=== PATIENT | male | born 1970 | race Two or more races ===

== ENCOUNTER → 2017-12-26 | Outpatient (CLI) | END | disposition home or self-care (01) ==

== ENCOUNTER → 2018-02-07 | Outpatient (CLI) | END | disposition home or self-care (01) ==

== ENCOUNTER 2018-06-29 11:35 | Day surgery (SDC) | payer OTHER ==
[2018-06-29] VITALS (9 sets, daily range): BP systolic 111–144; BP diastolic 59–82; PULSE 76–98; RESP 14–24; Ht 162.6 cm; Wt 65.9 kg
[~2018-06-29] VITALS: Ht 162.6 cm; Wt 65.9 kg
[2018-06-29] MEDS ORDERED: TRAM50TA PO (12:06)
[2018-06-29] MEDS ORDERED: MELO15TA30 PO (12:07)
--- NOTE | 2018-06-29 12:56 | PREAC ---
Date/Time of Note Date/Time of Note DATE: 06/29/18 TIME: 12:54 Anesthesia Eval and Record Evaluation Time Pre-Procedure Interview DATE: 06/29/18 TIME: 12:54 Age 47 Sex male NPO: 8 hrs Preoperative diagnosis RIGHT KNEE ACL TEAR Planned procedure RIGHT KNEE ARTHROSCOPY, ACL RECONSTRUCTION Past Medical History Past Medical History: None Surgery & Anesthesia Issues No known issue Meds Anticoagulation: No Beta Марина within 24 hr: No Reason Beta Марина not given: Pt. not on B-Марина Reported Medications Meloxicam* (Mobic*) 15 Mg Tablet, 15 MG PO DAILY, #30 TAB 06/29/18 Tramadol Hcl* (Ultram*) 50 Mg Tablet, 50 MG PO Q6H PRN for PAIN, TAB 06/29/18 Meds reviewed: Yes Allergies Coded Allergies: No Known Allergy (Unverified , 06/29/18) Allergies Reviewed: Yes Labs/Studies Labs Reviewed: Reviewed by anesthesiologist test: N/A Studies: ECG (NL), CXR (NAPD) Pre-procedure Exam Last vitals Vital Signs Date Temp Pulse Resp B/P (MAP) Pulse Ox O2 O2 Flow FiO2 Time Delivery Rate 06/29/18 97.0 76 18 111/62 99 Room Air 11:49 (78) Airway: Adequate mouth opening, Adequate thyromental dist Mallampati: Mallampati II Teeth: Normal Lung: Normal Heart: Normal ASA Physical Status ASA physical status: 1 Emergency: None Planned Anesthetic General/MAC: ETT Nerve block: Femoral (right) Planned Pain Management Single shot nerve block, Parenteral pain med Pre-operative Attestations Prior to commencing anesthesia and surgery, the patient was re-evaluated, there was verification of: *The patient's identity *The results of appropriate recent lab work and preoperative vital signs *The above evaluation not changing prior to induction *Anesthetic plan, risk benefits, alternative and complications discussed with patient/family; questions answered; patient/family understands, accepts and wishes to proceed. Bridger Aguila M.D. Jun 29, 2018 12:56
[2018-06-29] MEDS ORDERED: PROPOFOL 20 ML ONE (13:00)
[2018-06-29] MEDS ORDERED: DIPHENHYDRAMINE 50 MG INJ IV PRN (13:00)
[2018-06-29] MEDS ORDERED: LABETALOL HCL 20MG INJ IV PRN (13:00)
[2018-06-29] MEDS ORDERED: ONDANSETRON 4 MG INJ IV PRN (13:00)
[2018-06-29] MEDS ORDERED: FENTAnyl 50 MCG/ML VIAL IV PRN ×3 (13:00)
[2018-06-29] MEDS ORDERED: CEFAZOLIN 1 GM INJ ONE (13:00)
[2018-06-29] MEDS ORDERED: ROCURONIUM 50 MG INJ ONE (13:00)
[2018-06-29] MEDS ORDERED: GLYCOPYRROLATE 0.4 MG INJ ONE (13:00)
[2018-06-29] MEDS ORDERED: hydrALAzine 20 MG INJ IV PRN (13:00)
[2018-06-29] MEDS ORDERED: ONDANSETRON 4 MG INJ ONE (13:00)
[2018-06-29] MEDS ORDERED: HYDROmorphONE 1 MG/5 ML IV SYRINGE IV PRN ×3 (13:00)
[2018-06-29] MEDS ORDERED: EPHEDrine SULFATE 50 MG/5 ML SYG IV PRN (13:00)
[2018-06-29] MEDS ORDERED: MIDAZOLAM 1 MG/ML 2 ML INJ ONE (13:00)
[2018-06-29] MEDS ORDERED: MEPERIDINE 25 MG INJ IV PRN (13:00)
[2018-06-29] MEDS ORDERED: TRIMETHOBENZAMIDE 100 MG/ML VIAL IM PRN (13:00)
[2018-06-29] MEDS ORDERED: NEOSTIGMINE 3 MG/3 ML SYRINGE ONE (13:00)
[2018-06-29] MEDS ORDERED: ALBUTEROL 0.083% (NEB) 2.5 MG/3 ML AMP HHN PRN (13:00)
[2018-06-29] MEDS ORDERED: IPRATROPIUM (NEB) 0.5 MG/2.5 ML AMP HHN PRN (13:00)
[2018-06-29] MEDS ORDERED: OXYCODONE/ACETAMINOPHEN (5/325) TAB PO PRN ×2 (13:00)
[2018-06-29] MEDS ORDERED: FENTAnyl 50 MCG/ML VIAL ONE (13:00)
[2018-06-29] MEDS ORDERED: MIDAZOLAM 1 MG/ML 2 ML INJ IV PRN (13:00)
[2018-06-29] MEDS ORDERED: ROPIVACAINE 0.5 % 30 ML VIAL ONE ×2 (13:02→15:40)
--- NOTE | 2018-06-29 13:17 | HPN ---
Date/Time of Note Date/Time of Note DATE: 06/29/18 TIME: 13:17 Interval H&P Admission Note Pt. seen H&P reviewed: No system changes SABINE DEL TORO MD Jun 29, 2018 13:17
[2018-06-29] MEDS ORDERED: morphine 2 MG INJ IV PRN (13:30)
[2018-06-29] MEDS ORDERED: PHENYLephrine (100 MCG/ML) 10ML SYG ONE (13:54)
--- NOTE | 2018-06-29 16:20 | PAC ---
Date/Time of Note Date/Time of Note DATE: 06/29/18 TIME: 16:20 Post-Anesthesia Notes Post-Anesthesia Note Last documented vital signs Vital Signs Date Temp Pulse Resp B/P (MAP) Pulse Ox O2 O2 Flow FiO2 Time Delivery Rate 06/29/18 98.0 16:18 06/29/18 76 18 111/62 99 Room Air 11:49 (78) Activity: WNL Respiratory function: WNL Cardiovascular function: WNL Mental status: Baseline Pain reasonably controlled: Yes Hydration appropriate: Yes Nausea/Vomiting absent: Yes Bridger Aguila M.D. Jun 29, 2018 16:20
--- NOTE | 2018-06-29 17:04 | OPR ---
Date/Time of Note Date/Time of Note DATE: 06/29/18 TIME: 16:59 Operative Report Procedure Date: Jun 29, 2018 Preoperative Diagnosis Left knee ACL tear Left knee medial meniscal tear Postoperative Diagnosis Left knee ACL tear Left knee medial meniscal tear Left Knee Loose body Left knee osteochondral lesion of the medial femoral condyle (6x8mm) Operation/Procedure Performed Left knee arthroscopy ACL reconstruction with tibialis anterior allograft Left knee arthroscopy with medial meniscal repair Left knee arthroscopy with loose body removal Left knee arthroscopy with chondroplasty Left knee arthroscopy with microfracture and debridement of the osteochondral lesion of the medial femoral condyle Surgeon Sabine Del Toro MD Mining Manager IGNACIO García Anesthesia Type: general, other (fascia iliacus) Anesthesiologist: Bridger Aguila M.D. Tourniquet Time: 90 min at 250 mmhg Estimated Blood Loss: minimal Transfusion none Specimen None Grafts/Implants Mitek adjustable loop button Mitek bioIntrafix 7-9 Complications none Pt Condition Post Procedure: stable Disposition: PACU Indications The patient is a 47 year-old male with a prolonged history of Left knee giving way after playing soccer. He has had continued episodes of instability with catching and clicking over the past several months. The patient has restored their range of motion and is now brought to the operating room for ACL reconstruction, possible partial medial and lateral meniscectomy versus medial and lateral meniscal repair, chondroplasty and debridement. Risk Note: The risks, benefits, and alternatives of surgery were discussed with the patient. The risks included but were not limited to infection, bleeding, damage to vessels and nerves, loss of motion, continued pain, re-tear of the meniscus, deep venous thrombosis, and complications due to anesthesia including nerve injury, myocardial infarction, stroke, , etc. The patient stated understanding of the nature of the surgical procedure and gave written and verbal consent to proceed Procedure Description Patient was met in the preoperative holding area and the correct operative extremity was confirmed with both patient and consent. Patient was given preoperative fascial iliacus block was placed. Patient was brought to the operative theater and placed supine on the operative table. Patient was given general anesthesia and preoperative antibiotics. The left lower extremity was examined under anesthesia. Range of motion was 0 degrees of extension to 135 degrees of flexion. There was no varus or valgus or posterolateral instability. He had no instability to varus or valgus stress at 0 or 30 degrees. He had a 2+ Cristian and drawer with a positive pivot shift The left lower extremity was then prepped and draped in the usual fashion. A tourniquet was placed proximally on the thigh over a bias stockinette. A standard anterolateral parapatellar stab wound was created. The knee joint was entered with a blunt-tipped obturator, followed by the 30-degree video arthroscope. An anteromedial portal was established under arthroscopic control. A routine arthroscopic survey was performed. The suprapatellar pouch was unremarkable. The undersurface of the patella was well-preserved. The patella appeared to track centrally within the trochlear groove. 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 The trochlea no chondromalacia. The medial and lateral gutters were inspected and there was a 1.2 cm loose body seen and removed from the lateral gutter. There was no hypertrophied plica. The popliteal hiatus was entered and was unremarkable. The lateral compartment was entered. The lateral femoral condyle exhibited grade 1 chondromalacia and the lateral tibial plateau showed no chondromalacia. There was no chondromalacia adjacent to the notch. There was no chondromalacia along the central aspect of the weight bearing lateral tibial plateau. The lateral meniscus was the probed and found to be stable with no tear The intercondylar notch was visualized. The anterior cruciate ligament was torn from its femoral origin. Posteromedially there was no loose body seen. The posterior cruciate ligament was visualized and appeared intact although slightly strained. The medial compartment was entered. The articular surfaces of the medial femoral condyle showed a 6 x 8 mm osteochondral defect in the central portion of the weightbearing surface of the medial femoral condyle. The borders were sharply curetted to a firm and stable rim and then the chondral lesion was then microfractured with a pack. The meniscus was then probed and found to have a posterior horn tear that was a horizontal tear of the posterior horn extending to a peripheral tear to the mid body. The peripheral tear was debrided doing a partial meniscectomy the mid body and posterior horn with both a biter and a shaver and the posterior horn was then rasped and then repaired with a 2 Mitek truspan. The meniscus was then reprobed and found to be stable. Attention was turned to reconstruction of the anterior cruciate ligament. Following exsanguination with an Esmarch bandage the tourniquet was inflated to 250 mm of mercury. Using a motorized shaver a limited notchplasty was performed, exposing the lateral wall and roof of the notch, identifying the [id number] position. The stump of the anterior cruciate ligament was debrided. A Vector guide was placed intra-articularly between the tibial spines in line with the anterior horn of the lateral meniscus. A Mamie wire was then inserted into the knee through a 2 cm incision made over the proximal medial tibia. The incision was deepened through the subcutaneous tissue with subperiosteal dissection achieved. Bleeding points were coagulated with the Bovie electrocautery. The tibialis anterior allograft was prepped to create a size 9.5 graft on both the femoral and tibial side. Tibial drilling was then carried out first with a 6.5 mm followed by a 9.5 mm cylindrical reamer with the guide set at 55 degrees. Via an accessory medial portal, the Beath pin was drilled out the femoral cortex and skin with the knee in hyperflexion. The femoral tunnel was then created, with a spade tip guidewire, Depth-gauging confirmed a tunnel length of 30 mm. Then reaming proceeded, with a 9.5 mm drill to a depth of 25 mm. A adjustable rigid loop Mitek button was selected. The graft was inserted int ra-articularly and the Mitek button was deployed. The graft was cycled for 20 cycles with 25 pounds of force to pre-load the graft. Tibial fixation was carried out using a 7-9 Bio-IntraFix in 10 degrees of flexion with a posterior drawer. At the completion of surgery the patient had a firm stable Cristian. There was a negative pivot shift. The patient had a 0 firm Cristian and a negative pivot shift. There was no evidence for any roof or lateral wall impingement. The tourniquet was deflated at 90 minutes. The knee was irrigated with two liters of lactated Ringer's solution. Excess fluid was drained. The tibial wounds were then copiously irrigated with bacitracin solution and closed in layers with #0, #2-0 and #3-0 Vicryl. The skin was reapproximated with 3-0 then #4-0 Monocryl. The knee was injected with 20 cc of 0.5% plain ropivacaine. A dry sterile dressing was applied, followed by a bulky bandage and brett wrap, insuring no contact with the skin. A postoperative TROM brace was applied locked in full extension. The patient was awakened in the Operating Room and transported to the Recovery Room in satisfactory condition. The patient appeared to tolerate the procedure well. At the completion of surgery the patient had soft compartments, palpable pulses, and brisk capillary refill. There were no complications noted. Patient begin partial weightbearing this coming couple days. With the brace locked in extension he will begin aspirin 81 mg Po qday starting tomorrow. Mining Manager surgeon: An insurance administrative assistant registered nurse graduate research assistant was needed for this case to assist with positioning of the limb during repair of the injury as well as assisting in fixation of the ACL and meniscus while holding the arthroscope. Without a qualified WIRELINE OPERATOR in this case the case would be significantly more complex and longer. SABINE DEL TORO MD Jun 29, 2018 17:04
== END 2018-06-29 17:45 | disposition home or self-care (01) ==
LOC: SDS 11:35
PROVIDERS: ATTEND Orthopaedic Surgery
DX: S83.512D Sprain of anterior cruciate ligament of left knee, subsequent encounter (principal); S83.242D Other tear of medial meniscus, current injury, left knee, subsequent encounter; X58.XXXD Exposure to other specified factors, subsequent encounter; M23.42 Loose body in knee, left knee
CPT/HCPCS: 29881; 29888; 82306; C1713; C1762; J0690; J1170; J2250; J2370; J2405; J2710; J2795; J3010